=== PATIENT | male | born 1960 | race Caucasian/White ===

== ENCOUNTER 2017-09-17 07:54 | Emergency (ER) | payer OTHER ==
[~2017-09-17] VITALS: Ht 170.2 cm; Wt 83.9 kg
[~2017-09-17 07:54] MED LIST: ABILIFY2 MG PO; ASPIRIN EC81 M1 PO; ATORVASTATIN CA40 M1 PO; CLONAZEPAM0.5 M2 PO; EFFEXOR XR75 M1 PO; FIBER625 MG PO; FINASTERIDE5 M1 PO; FISH OIL 1,2001 EAC4 PO; FLUTICASONE PRO16 GM NASB; GABAPENTIN300 M2 PO; GEMFIBROZIL600 M1 PO; HUMALOG KW100 UNIT/1 SC; HUMALOG100 UNIT/2 SC; LAMICTAL25 M1 PO; LAMOTRIGINE25 M3 PO; LANTUS100 UNIT/1 SC; LISINOPRIL20 M1 PO; LORATADINE10 M1 PO; MAGNESIUM400 M1 PO; METFORMIN HCL1000 M1 PO; METFORMIN HCL500 M3 PO; MULTI-DAY PLUS1 EAC1 PO; NOVOLOG100 UNIT/2 SC; PANTOPRAZOLE SO40 M1 PO; TAMSULOSIN HCL0.4 M1 PO; VENLAFAXINE H37.5 M3 PO; VITAMIN B COMP1 EACH PO
--- NOTE | 2017-09-17 08:09 | ED GENERAL ADULT ---
See Addendum History of Present Illness General Chief Complaint: Nausea, Vomiting, Diarrhea Stated Complaint: [place] CUSTODY, +NAUSEA Source: patient, old records, EMS, police Exam Limitations: no limitations Vital Signs & Intake/Output Vital Signs & Intake/Output Vital Signs Date Time Temp Pulse Resp B/P B/P Pulse O2 O2 Flow FiO2 Mean Ox Delivery Rate 09/18 0036 97.0 87 16 123/69 09/18 0020 97.0 87 18 123/69 94 Room Air 09/17 2238 97.9 86 20 138/78 09/17 2234 97.9 85 18 139/84 09/17 2220 130/70 09/17 2216 98.0 86 18 142/84 09/17 2130 69 18 140/82 09/18 1999 98.0 84 20 138/74 09/17 1954 97.8 92 18 140/71 98 Room Air 09/17 1804 98.0 96 20 133/68 09/17 1538 98.0 102 18 134/78 09/17 1538 98.0 100 18 134/74 99 Room Air 09/17 1426 98 Room Air 09/17 1400 98.2 100 19 131/65 09/17 1400 98.2 100 19 131/65 98 Room Air 09/17 1200 98.8 108 20 155/65 09/17 1150 98.8 108 18 155/65 98 Room Air 09/17 1042 98.8 108 20 150/71 100 Room Air 09/17 1033 98.8 108 18 150/71 09/17 0808 98.4 88 19 141/63 09/17 0805 98 Room Air 09/17 0804 98.4 88 19 141/63 98 Room Air ED Intake and Output 09/18 0000 09/17 1200 Intake Total 1999 Output Total 280 1 Balance 1720 -1 Intake, IV 2000 Output, 1 Emesis Output, Urine 280 Patient 185 lb Weight Weight Reported by Patient Measurement Method Allergies Coded Allergies: No Known Allergies (01/19/17) Reconcile Medications Acamprosate Calcium 333 MG TABLET.DR 2 TAB PO TID ALCOHOLISM (Reported) Atorvastatin Calcium 40 MG TABLET 1 TAB PO DAILY CHOLESTEROL (Reported) Finasteride 5 MG TABLET 1 TAB PO DAILY PROSTATE (Reported) Fluticasone Propionate 50 MCG/ACTUATION SPRAY.SUSP 2 SPRAY NASB DAILY ALLERGIES (Reported) Gabapentin 300 MG CAPSULE 1 CAP PO TID NERVE PAIN/MOOD (Reported) Gemfibrozil 600 MG TABLET 1 TAB PO BID CHOLESTEROL (Reported) Insulin Lispro (Humalog Kwikpen U-100) 100 UNIT/ML INSULN.PEN DM (Reported) Insulin-Lantus (Lantus) 100 UNIT/ML VIAL 35 UNIT SC QAM DM (Reported) Lamotrigine (Lamictal) 100 MG TABLET 1 TAB PO DAILY MENTAL HEALTH (Reported) Levomefolate Calcium (Elfolate) 15 MG TABLET 1 TAB PO DAILY SUPPLEMENT ( Reported) Lipase/Protease/Amylase (Henrietta Otero 12,000 Units Capsule) [id number] CAPSULE.DR 1 CAP PO TID PANCREATIC ENZYMES (Reported) Lisinopril 40 MG TABLET 1 TAB PO DAILY BP (Reported) Loratadine 10 MG TABLET 1 TAB PO DAILY ALLERGIES (Reported) Magnesium Oxide (Magnesium) 400 MG CAPSULE 1 CAP PO DAILY SUPPLEMENT ( Reported) Metformin HCl 500 MG TABLET 1 TAB PO BID DM (Reported) Multivitamin-Min/Iron/FA/Vit K (Multi-Day Plus Minerals Tablet) 18 MG IRON-400 MCG-25 MCG TABLET 1 TAB PO DAILY SUPPLEMENT (Reported) [place]-3 Fatty Acids/Fish Oil (Fish Oil 1,200 MG Softgel) 360 MG-1,200 MG CAPSULE 1 CAP PO BID SUPPLEMENT (Reported) Pantoprazole Sodium 40 MG TABLET.DR 1 TAB PO DAILY GI (Reported) Polycarbophil (Fiber) 625 MG TABLET 2 TAB PO BID SUPPLEMENT (Reported) Tamsulosin HCl 0.4 MG CAP.ER.24H 2 CAP PO DAILY PROSTATE (Reported) Venlafaxine HCl (Effexor XR) 150 MG CAP.ER.24H 1 CAP PO DAILY MENTAL HEALTH ( Reported) Vitamin B Complex 1 EACH CAPSULE 1 CAP PO DAILY SUPPLEMENT (Reported) Core Measure Meds Pre-Hospital aspirin Triage Note: 56 Y/O MALE BIBA FROM PD CUSTODY FOR SOME NAUSEA AND PT STS NOT FEELING WELL. PT PRIOR TO ARREST LAST NIGHT PT WAS SOBER FOR 2 MONTHS AND THE PAST TWO DAYS STOPPED TAKING HIS MEDICATIONS AND WENT ON DRINKING BINGE. PT ARRIVES A/O X3 AND STS HE ALSO HAS WITHDRAWAL SEIZURES. PT NOTED TO HAVE AN EPISODE OF VOMITING AT BEDSIDE. MD BLOOM AT BEDSIDE TO EVAL PT Triage Nurses Notes Reviewed? yes Onset: Just prior to arrival Duration: hour(s):, constant, continues in ED, getting worse Timing: recent history Injury Environment: care home Severity: moderate, severe No Modifying Factors: none HPI: Patient reports being sober for 2 months and went on a binge drinking spree for 2 days. He was arrested last night for failure to appear in court. Several hours prior to admission he complains of nausea vomiting abdominal discomfort increased anxiety and malaise. He has a history of withdrawal seizures. There's been no fever chills chest pain cough shortness of breath headache dysuria rash bleeding (Peter Bloom MD) Past History Travel History Traveled to [place] past 21 day No Medical History Any Pertinent Medical History? see below for history Neurological: seizure (alcohol withdrawal seizures) EENT: NONE Cardiovascular: hypertension, hyperlipidemia Respiratory: NONE Gastrointestinal: NONE Hepatic: NONE Renal: NONE Musculoskeletal: NONE Psychiatric: alcohol dependence, anxiety, depression Endocrine: diabetes (type II but insulin-dependent) Blood Disorders: NONE Cancer(s): NONE ROBOTIC MACHINE OPERATOR/Reproductive: NONE History of MRSA: No History of VRE: No History of CDIFF: No Surgical History Surgical History: hernia repair-inguinal Psychosocial History Who do you live with Patient/Self What is your primary language Bangladeshi Tobacco Use: Never used ETOH Use: alcoholic Illicit Drug Use: denies illicit drug use Family History Hx Contributory? No (Peter lBoom MD) Review of Systems Review of Systems Constitutional: Reports: see HPI, malaise. EENTM: Reports: no symptoms. Respiratory: Reports: no symptoms. Cardiovascular: Reports: no symptoms. GI: Reports: see HPI, abdominal pain, nausea, vomiting. Genitourinary: Reports: no symptoms. Musculoskeletal: Reports: no symptoms. Skin: Reports: no symptoms. Neurological/Psychological: Reports: no symptoms. Hematologic/Endocrine: Reports: no symptoms. Immunologic/Allergic: Reports: no symptoms. All Other Systems: Reviewed and Negative (Peter Bloom MD) Physical Exam Physical Exam General Appearance: well developed/nourished, alert, awake, anxious, severe distress Head: atraumatic, normal appearance Eyes: Bilateral: normal appearance, PERRL, EOMI. Ears, Nose, Throat: normal pharynx, normal ENT inspection, hearing grossly normal Neck: normal inspection, supple, full range of motion, no midline tenderness Respiratory: normal breath sounds, chest non-tender, no respiratory distress, quiet respiration, lungs clear Cardiovascular: regular rate/rhythm, normal peripheral pulses, norml femoral pulses equa Peripheral Pulses: 4+ carotid (R), 4+ carotid (L) Gastrointestinal: normal bowel sounds, soft, non-tender, no organomegaly Back: normal inspection, normal range of motion, no vertebral tenderness Extremities: normal inspection, normal capillary refill, normal range of motion, no edema Neurologic/Psych: no motor/sensory deficits, awake, alert, oriented x 3, normal gait, normal mood/affect, 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 Skin: intact, normal color, warm/dry Lymphatic: no anterior cervical ruth Core Measures ACS in differential dx? No CVA/TIA Diagnosis: No Sepsis Present: No Sepsis Focused Exam Completed? No (Brittney ELLIOTT,Peter) Progress Differential Diagnoses I considered the following diagnoses in my evaluation of the patient: Gastroenteritis alcohol withdrawal Plan of Care: Orders Procedure Date/time Status Consistent Carbohydrate 2 09/18 B Active Regular Diet 09/17 D Complete BASIC METABOLIC PANEL 09/17 223 Complete ACETONE 09/17 223 Complete Add-on Test (ER Only) 09/17 1601 Active OXYGEN SETUP (GEN) 09/17 1447 Active Saline Lock 09/17 1447 Active Vital Signs 09/17 1447 Active Activity/Ambulation 09/17 1447 Active Code Status 09/17 1447 Active URINE DRUG SCREEN FOR ER ONLY 09/17 0830 Complete ETHANOL 09/17 0807 Complete CIWA 09/17 0803 Active MAGNESIUM 09/17 0803 Complete LIPASE 09/17 0803 Complete COMPREHENSIVE METABOLIC PANEL 09/17 0803 Complete CBC WITHOUT DIFFERENTIAL 09/17 0803 Complete Current Medications Sig/Jaylene Start time Last Medication Dose Stop Time Status Admin Atorvastatin Calcium 40 MG 1700 09/18 1700 UNVr (Lipitor) Lisinopril 40 MG DAILY 09/18 1000 UNVr (Prinivil) Lorazepam 1.5 MG FOUR TIMES A DAY 09/18 1000 UNVr (Ativan) Insulin Human Regular 0 TIDAC/HS 09/18 0800 UNVr (NovoLIN R) Omeprazole 40 MG DAILY AC 09/18 0700 UNVr 09/17 (Prilosec) 2131 Lorazepam 1 MG Q6P PRN 09/17 2230 UNVr 09/17 (Ativan) 223 Gemfibrozil 600 MG BID 03/24 2200 UNVr 09/17 (Lopid 600 MG Tab) 2130 Finasteride 5 MG DAILY 09/18 2055 UNVr 09/17 (Proscar) 2130 Lisinopril 40 MG DAILY 09/18 2055 UNVr 09/17 (Prinivil) 2233 Tamsulosin HCl 0.4 MG DAILY 09/18 2055 UNVr 09/17 (Flomax) 2129 Venlafaxine HCl 150 MG DAILY 09/17 2054 UNVr 09/17 (Effexor) 2129 Acetaminophen 650 MG Q4P PRN 09/17 1929 UNVr (Tylenol) Metformin HCl 500 MG 0800,1700 09/17 1905 AC (Glucophage) Lamotrigine 100 MG DAILY 09/17 1857 UNVr 09/17 (LaMICtal) 1936 Gabapentin 300 MG TID 09/17 1856 UNVr 09/17 (Neurontin) 2234 Laboratory Tests 09/18/17 0015: Anion Gap 7, Estimated GFR > 60, BUN/Creatinine Ratio 23.8, Glucose 276 H, Calcium 7.9 L, Acetone Level NEGATIVE 09/17/17 0831: Urine Opiates Screen < 100, Methadone Screen < 40, Barbiturate Screen < 60, Ur Phencyclidine Scrn < 6.00, Amphetamines Screen < 100, U Benzodiazepines Scrn < 85, Urine Cocaine Screen < 50, Urine Cannabis Screen < 5.00 09/17/17 0807: Anion Gap 28 H, Estimated GFR > 60, BUN/Creatinine Ratio 20.9, Glucose 256 H, Calcium 10.0, Magnesium 1.3 L, Total Bilirubin 1.5 H, AST 54, ALT 63, Alkaline Phosphatase 67, Total Protein 8.1, Albumin 5.0, Globulin 3.1, Albumin/Globulin Ratio 1.6, Lipase 64, CBC w Diff NO MAN DIFF REQ, RBC 5.43, MCV 86.6, MCH 28.6, MCHC 33.1, RDW 14.0, MPV 10.0, Gran % 75.3 H, Lymphocytes % 16.7 L, Monocytes % 7.7, Eosinophils % 0.1, Basophils % 0.2, Absolute Granulocytes 10.8 H, Absolute Lymphocytes 2.4, Absolute Monocytes 1.1 H, Absolute Eosinophils 0, Absolute Basophils 0, Serum Alcohol < 10.0 Initial ED EKG: none Rhythm Strip: sinus tachycardia Hand-Off Endorsed To: Best Castorena MD Endorsed Time: 1899 Pending: other (case management, [facility]) Comments: Continues with anxiety. (Peter Bloom MD) Differential Diagnoses I considered the following diagnoses in my evaluation of the patient: gastroenteritis, etoh withdrawal. Hand-Off Endorsed To: Peter Bloom MD Endorsed Time: 0700 (Best Castorena MD) Departure Departure Disposition: STILL A PATIENT Condition: Stable Referrals: Unknown (PCP/Family) Departure Forms: Customer Survey General Discharge Information (Peter Bloom MD) Departure Clinical Impression Primary Impression: Alcohol withdrawal delirium Secondary Impressions: Alcoholic ketosis Hyperglycemia Nausea and vomiting Qualifiers: Vomiting type: unspecified Vomiting Intractability: non-intractable Qualified Code: R11.2 - Nausea with vomiting, unspecified (Best Castorena MD) Critical Care Note Critical Care Note Critical Care Time: 30-74 min (45) (Peter Bloom MD)
[2017-09-17 08:37] LABS: ABSOLUTE BASOPHIL COUNT 0 /CUMM (0.0-0.2); ABSOLUTE EOSINOPHIL COUNT 0 /CUMM (0.0-0.7); ABSOLUTE GRANULOCYTE CT 10.8 /CUMM (1.4-6.5); ABSOLUTE LYMPH COUNT 2.4 /CUMM (1.2-3.4); ABSOLUTE MONOCYTE COUNT 1.1 /CUMM (0.10-0.60); BASOPHIL % 0.2 % (0.0-2.0); EOSINOPHIL % 0.1 % (0-5); GRANULOCYTE % 75.3 % (42.2-75.2); MEAN CORPUSCULAR HGB 28.6 PG (27.0-31.0); MEAN CORPUSCULAR HGB CONC 33.1 G/DL (33.0-37.0); MEAN CORPUSCULAR VOLUME 86.6 FL (80.0-94.0); PLATELET COUNT 319 /CUMM (130-400); RED BLOOD CELL CT 5.43 /CUMM (4.70-6.10); WHITE BLOOD CELL COUNT 14.3 /CUMM (4.8-10.8)
[2017-09-17] MEDS ORDERED: ACAMPROSATE CA333 M1 PO (12:41)
[2017-09-17] MEDS ORDERED: METFORMIN HCL500 M3 PO (12:43)
[2017-09-17] MEDS ORDERED: CREON DR 12,001 EACH PO (12:44)
[2017-09-17] MEDS ORDERED: LAMICTAL100 M2 PO (12:46)
[2017-09-17] MEDS ORDERED: EFFEXOR XR150 M1 PO (12:47)
[2017-09-17] MEDS ORDERED: LISINOPRIL40 M1 PO (12:48)
[2017-09-17] MEDS ORDERED: ELFOLATE15 MG PO (12:48)
[2017-09-18 15:36] VITALS: BP 121/67
== END 2017-09-18 15:48 ==
LOC: ERH 07:54
PROVIDERS: Emergency Medicine
DX: F10.231 Alcohol dependence with withdrawal delirium (principal); E88.89 Other specified metabolic disorders; E11.65 Type 2 diabetes mellitus with hyperglycemia
CPT/HCPCS: 80307; 96372; 96374; 96375; 99291; G0480; J1815; J2405; J2765